=== PATIENT | female | born 1995 ===

== ENCOUNTER 2018-03-19 09:12 | Emergency (ER) | payer OTHER ==
--- NOTE | 2018-03-19 09:19 | ED PDOC ---
Arrival/HPI - General Time Seen by Provider: 03/19/18 09:13 Historian: Patient - History of Present Illness Narrative History of Present Illness (Text): 03/19/18 09:17 22yo female with no pmhx who present with complaint of back pain x one week. 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 Pain is with movement. describes as crampy. she did not take any analgesic for pain. Denies abdominal pain, urinary symptoms, any other complaint. Past Medical History - Provider Review Nursing Documentation Reviewed: Yes Family/Social History - Physician Review Nursing Documentation Reviewed: Yes Family/Social History: Unknown Family HX Allergies/Home Meds Allergies/Adverse Reactions: Allergies Penicillins Allergy (Verified 03/19/18 09:19) ANAPHYLAXIS Review of Systems - Physician Review All systems were reviewed & negative as marked: Yes - Review of Systems Constitutional: Normal Eyes: Normal ENT: Normal Respiratory: Normal Cardiovascular: Normal Gastrointestinal: Normal Genitourinary Female: Normal Musculoskeletal: Back Pain Skin: Normal Neurological: Normal Endocrine: Normal Hemo/Lymphatic: Normal Psychiatric: Normal Physical Exam Vital Signs Reviewed: Yes Vital Signs Temp Pulse Resp BP Pulse Ox 03/19/18 10:57 98 F 68 16 112/70 99 03/19/18 09:16 98.2 F 74 18 116/79 100 Temperature: Afebrile Blood Pressure: Normal Pulse: Regular Respiratory Rate: Normal Appearance: Positive for: Well-Appearing, Non-Toxic, Comfortable Pain Distress: None Mental Status: Positive for: Alert and Oriented X 3 - Systems Exam Head: Present: Atraumatic, Normocephalic Pupils: Present: PERRL Extroacular Muscles: Present: EOMI Conjunctiva: Present: Normal Mouth: Present: Moist Mucous Membranes Neck: Present: Normal Range of Motion Respiratory/Chest: Present: Clear to Auscultation, Good Air Exchange. No: Respiratory Distress, Accessory Muscle Use Cardiovascular: Present: Regular Rate and Rhythm, Normal S1, S2. No: Murmurs Abdomen: No: Tenderness, Distention, Peritoneal Signs Back: Present: Midline Tenderness. No: Paraspinal Tenderness, Pain with Leg Raise Upper Extremity: Present: Normal Inspection. No: Cyanosis, Edema Lower Extremity: Present: Normal Inspection. No: Edema Neurological: Present: GCS=15, CN II-XII Intact, Speech Normal Skin: Present: Warm, Dry, Normal Color. No: Rashes Psychiatric: Present: Alert, Oriented x 3, Normal Insight, Normal Concentration Medical Decision Making ED Course and Treatment: 03/19/18 11:06 PT presented for stated history. She was ambulatory and neurologically intact. she was not in any distress. Noticed laughing with a friend. Her pain was controlled in ED. LS xray - No acute finding Result was DW the pt. She was DC with Iburpfoen. Advised to rest, apply warm compress/shower to area. Referred to her PMD. TRT ED for any new or worsening symptoms. - RAD Interpretation Radiology Orders: 03/19/18 09:19 LS SPINE WITH OBL > 18 YRS OLD [RAD] Stat - Medication Orders Current Medication Orders: Discontinued Medications Ibuprofen (Motrin Tab) 600 mg PO STAT STA Stop: 03/19/18 09:20 Last Admin: 03/19/18 09:28 Dose: 600 mg MAR Pain/Vitals [place] 03/19/18 09:28 [facility] [place] 03/19/18 09:28 LM [id number]) Pain Reassessment Is This A Pain ReAssessment? No Sleep Is patient sleeping during reassessment? No Presence of Pain Presence of Pain Yes Location Pain Location Body Site Back Intensity 3 Scale Used Numeric Disposition/Present on Arrival - Present on Arrival Any Indicators Present on Arrival: No History of DVT/PE: No History of Uncontrolled Diabetes: No Urinary Catheter: No History of Decub. Ulcer: No History Surgical Site Infection Following: None - Disposition Have Diagnosis and Disposition been Completed?: Yes Diagnosis: Back pain Disposition: HOME/ ROUTINE Disposition Time: 11:00 Patient Plan: Discharge Patient Problems: Current Active Problems Problem Status Onset Back pain Acute Condition: STABLE Discharge Instructions (ExitCare): Low Back Pain in Adults Additional Instructions: Follow up with your Doctor Apply warm compress/shower to area Return to ED for any new or worsening symptoms Prescriptions: Ibuprofen [Ibu] 400 mg PO Q6 #15 tablet Referrals: Shana Arcos MD [Medical Doctor] - Follow up with primary Forms: WORK NOTE
[2018-03-19 10:57] VITALS: BP 112/70; PULSE 68; RESP 16; TEMP 98; O2SAT 99
--- NOTE | 2018-03-19 11:01 | RAD ---
Date of service: 03/19/2018 PROCEDURE: Radiographs of the Lumbar Spine. HISTORY: back pain COMPARISON: No prior. FINDINGS: BONES: Normal alignment. No listhesis. No fracture. DISC SPACES: Unremarkable. OTHER FINDINGS: None. IMPRESSION: Unremarkable radiographs of the lumbar spine.
== END 2018-03-19 11:30 | disposition home or self-care (01) ==
LOC: MERGE 09:12 → ED 09:12
DX: M54.9 Dorsalgia, unspecified (principal)